=== PATIENT | female | born 1960 | race Caucasian/White ===

== ENCOUNTER → 2018-03-14 | Outpatient (CLI) | payer OTHER ==
--- NOTE | 2018-04-09 14:44 | EM ---
EVENT MONITOR The patient was monitored between March 17 and March 29, 2018. The rhythm strip revealed a sinus mechanism with episode of atrial tachycardia, but no evidence of malignant arrhythmia. MMODL / IJN: [id number] /
== END | disposition home or self-care (01) ==
LOC: RADECHMAIN 12:23
PROVIDERS: ATTEND Family Medicine
DX: I47.1 Supraventricular tachycardia (principal)
CPT/HCPCS: 93270; 93271